=== PATIENT | male | born 1990 | race Caucasian/White ===

== ENCOUNTER 2018-11-09 12:27 | Emergency (ER) | payer MEDICAID ==
[~2018-11-09] VITALS: Ht 180.3 cm; Wt 102.3 kg
[2018-11-09 12:30] VITALS: BP 165/100
[2018-11-09] MEDS ORDERED: predniSONE 20 mg tablet PO ONE (13:15)
[2018-11-09] MEDS ORDERED: METH4TAB3 PO (13:16)
== END 2018-11-09 13:34 | disposition home or self-care (01) ==
LOC: ER 12:28
DX: L23.7 Allergic contact dermatitis due to plants, except food (principal); Z79.899 Other long term (current) drug therapy
CPT/HCPCS: 99283; J7512

== ENCOUNTER 2018-11-12 07:42 | Emergency (ER) | payer MEDICAID ==
[~2018-11-12] VITALS: Ht 180.3 cm; Wt 102.3 kg
[~2018-11-12 07:42] MED LIST: METH4TAB3 PO
[2018-11-12 07:44] VITALS: BP 150/86
[2018-11-12] MEDS ORDERED: METH-603 PO (08:26)
[2018-11-12] MEDS ORDERED: triamcinolone acetonide 40mg/ml inj IM ONE (08:35)
[2018-11-12] MEDS ORDERED: PRED20TA PO (08:38)
== END 2018-11-12 09:43 | disposition home or self-care (01) ==
LOC: ER 07:43
DX: L23.7 Allergic contact dermatitis due to plants, except food (principal)
CPT/HCPCS: 96372; 99283; J3301

== ENCOUNTER 2019-09-06 13:26 | Emergency (ER) | payer MEDICAID ==
[~2019-09-06] VITALS: Ht 180.3 cm; Wt 95.5 kg
[~2019-09-06 13:26] MED LIST changes: +METH-603 PO
[2019-09-06 13:36] VITALS: BP 157/95
[2019-09-06] MEDS ORDERED: PRED20TA PO (14:05)
[2019-09-06] MEDS ORDERED: methylPREDNISolone sod succ 125mg/2ml vial IM ONE (14:05)
== END 2019-09-06 14:28 | disposition home or self-care (01) ==
LOC: ER 13:27
DX: L23.7 Allergic contact dermatitis due to plants, except food (principal); Z79.899 Other long term (current) drug therapy
CPT/HCPCS: 96372; 99283; J2930

== ENCOUNTER 2025-08-27 14:39 | Emergency (ER) | payer MEDICAID, OTHER ==
[~2025-08-27] VITALS: Ht 180.3 cm; Wt 92.1 kg
[2025-08-27 14:59] VITALS: BP 171/113; PULSE 98; RESP 20; TEMP 98.1; O2SAT 98
[2025-08-27] MEDS ORDERED: HYDR-3686 PO (16:46)
--- NOTE | 2025-08-27 16:46 | Physician Documentation ---
History of Present Illness ~ Chief Complaint: Anxiety Stated Complaint: TREMORS Time Seen by MD: 15:56 Primary Medical Doctor: none HPI This is a 35-year-old male with previous diagnosis of anxiety, patient reports he currently does not take medication for anxiety in his not seen a provider in some time. Patient reports over the past two months he has been having increased anxiety symptoms and frequent panic attacks. Patient reports feeling anxious today otherwise reports no other acute symptoms or concerns. Medication Reconciliation Allergies: Coded Allergies: No Known Allergies (Unverified , 08/27/25) Scheduled Hydroxyzine Hcl (Atarax), 1 TAB PO Q8H Methadone Hcl* (Dolophine*), 30 MG PO BID, (Reported) Methylprednisolone (Medrol), 1 DOSPAK PO UD Past Medical History Past Medical History: No Pertinent History Past Surgical History: no surgical history Alcohol Use: None Drug Use: none Lives with: Family Lives In: Home Review of Systems ROS As stated above in the HPI, otherwise all systems are reviewed and negative. Physical Exam Vital Signs: Temperature: 98.1, Source: Temporal, Heart Rate: 98, Respiratory Rate: 20, BP: 171/113, Pulse Oximetry: 98, Weight: 92.100 Oxygen Flow Rate: 0 Physical Exam VITALS: Reviewed and as above. GENERAL: Alert, nontoxic appearing, no apparent distress. RESPIRATORY: No increased work of breathing, no respiratory distress, speaking in full clear sentences PSYCH: Anxious appearing, no statements of HI or SI Progress Results/Orders Results/Orders Completed Orders - ADAN KEYS [employer] Hydroxyzine Tablet (Atarax Tablet) (08/27/25 16:35) Medications Received in ER Medications (Trade) Dose Ordered Sig/Jasmin Route PRN Reason Start Time Stop Time Status Last Admin Dose Admin (Atarax tablet) 25 mg ONCE ONCE PO 08/27/25 16:35 08/27/25 16:37 DC 08/27/25 16:56 25 MG Vital Signs 08/27/25 14:59 Temp 98.1 Pulse 98 Resp 20 B/P (MAP) 171/113 Pulse Ox 98 O2 Flow Rate 0 Medical Decision Making Findings This is a 35-year-old male with previous history of anxiety presented due to increased anxiety symptoms in the last two months and frequent panic attacks. Patient was mildly anxious appearing on exam otherwise reporting no other acute symptoms or concerns including no HI or SI, at a discussion with the patient about the importance of following up with primary care provider or mental health provider for long-term management of anxiety symptoms. Patient is otherwise well-appearing and appropriate for outpatient follow up. Patient medicated for anxiety in department and discharged with prescription for Atarax PRN for anxiety. Patient provided home care instructions, follow up instructions, and return to care precautions which he verbalized understanding of. Differential Dx:Considerations: Include: Alcohol abuse, Anxiety, Bipolar disorder, Conversion disorder, Depression, Homicidal, Panic disorder, Personality disorder, Schizophrenia, Substance abuse, Suicidal Departure Time of Disposition: 16:44 Disposition: 01 HOME / SELF CARE / HOMELESS Impression: Primary Impression: Anxiety Condition: Improved Discharge Instructions: Managing Anxiety, Adult, Panic Attack Additional Instructions: Please use the prescribed medication as needed for anxiety symptoms. You will need to see a primary care provider or mental health provider for long-term management of your anxiety symptoms, I recommend discussing with primary care or mental health provider a daily medication for anxiety. Please follow up with your primary care provider in the next few days. Please return to the emergency department for any new or worsening concerning symptoms including but not limited to thoughts of harming yourself or others. Referrals: NO PRIMARY CARE PROVIDER (PCP) Prescriptions Hydroxyzine Hcl (Atarax) 25 Mg Tablet 1 TAB PO Q8H for anxiety for 30 Days, #90 TAB 0 Refills Prov: ADAN KEYS 08/27/25 Education Educated: Patient, Family Educated regarding: diagnosis, treatment, prognosis, need for follow up Signature Scribe Signature: No scribe Attestation: The note accurately reflects work and decisions made by me.BONI Cohen 08/27/25 21:18 ADAN KEYS Aug 27, 2025 16:46
== END 2025-08-27 17:16 | disposition home or self-care (01) ==
LOC: ER 14:40
DX: F41.9 Anxiety disorder, unspecified (principal)
CPT/HCPCS: 99283; Q0177